=== PATIENT | male | born 2000 | race Asian ===

== ENCOUNTER 2019-04-04 21:14 | Emergency (ER) | payer OTHER ==
[~2019-04-04] VITALS: Ht 175.3 cm; Wt 80.3 kg
[~2019-04-04 21:14] MED LIST: CETI10CA PO; MONT10TA80 PO
[2019-04-04] MEDS ORDERED: IV NORMAL SALINE 1,000ML 1,000 ML IV SCH (21:50)
--- NOTE | 2019-04-04 21:59 | PHYS DOC ---
Past History Past Medical History: Arthritis, Asthma Past Surgical History: No Surgical History Smoking: Non-smoker Alcohol Use: None Drug Use: None Adult General Chief Complaint Chief Complaint: NAUSEA/VOMITING/DIARRHEA HPI HPI Patient is a 18-year-old male who presents with complaint of three-day history of headache and has had some nausea and vomiting over the last 2 days. Patient has only had one episode of vomiting today. He does indicate that he feels nauseated. Patient rates the pain in his abdomen at a 7 out of 10 and his headache he rates at an 8 out of 10. He states the pain is primarily in his left mid abdominal region. Patient does reportedly have history of Chiari malforma tion which parents attribute to his headache. Patient was seen earlier by his primary care provider and had obtained some blood work and they were concerned that he may have hepatitis. Patient has had no vomiting.[] Review of Systems Review of Systems Constitutional: Positive fever and chills [] Respiratory: Denies cough or shortness of breath [] Cardiovascular: No additional information not addressed in HPI [] GI: Complains of abdominal pain with nausea and vomiting. Denies diarrhea [] : Denies dysuria or hematuria [] Musculoskeletal: Denies back pain or joint pain [] Neurologic: Complains of headache without focal weakness or sensory changes [] All other systems were reviewed and found to be within normal limits, except as documented in this note. Current Medications Current Medications Current Medications Medications (Trade) Dose Ordered Sig/[facility] Start Time Stop Time Status Last Admin Dose Admin Fentanyl Citrate (Fentanyl 2ml Vial) 50 mcg PRN Q15MIN PRN 04/04/19 22:00 04/05/19 21:59 UNV Ketorolac Tromethamine (Toradol 30mg Vial) 30 mg 1X ONCE 04/04/19 22:00 04/04/19 22:01 UNV Ondansetron HCl (Zofran) 4 mg 1X ONCE 04/04/19 22:00 04/04/19 22:01 UNV Sodium Chloride 1,000 ml @ 1,000 mls/hr Q1H 04/04/19 21:50 04/04/19 22:49 UNV Allergies Allergies Allergies Coded Allergies Type Severity Reaction Last Updated Verified No Known Drug Allergies 03/17/14 No Physical Exam Physical Exam Constitutional: Well developed, well nourished, no acute distress, non-toxic appearance. [] HENT: Normocephalic, atraumatic, bilateral external ears normal, oropharynx moist, no oral exudates, nose normal. [] Eyes: PERRLA, EOMI, conjunctiva normal, no discharge. [] Neck: Normal range of motion, no tenderness, supple, no stridor. [] Cardiovascular: Mildly tachycardic rate with regular rhythm[] Lungs & Thorax: Bilateral breath sounds clear to auscultation [] Abdomen: Bowel sounds normal, soft, with left lower and left mid abdominal tenderness. [] Skin: Warm, dry, no erythema, no rash. [] Extremities: No tenderness, no cyanosis, no clubbing, ROM intact, no edema. [] Neurologic: Alert and oriented X 3, no focal deficits noted. [] EKG EKG [] Radiology/Procedures Radiology/Procedures [] Impressions: PROCEDURE: CT ABD PELV W/ IV CONTRST ONLY CT scan of the abdomen and pelvis with contrast 04/04/2019 CLINICAL HISTORY: Left-sided abdominal pain with nausea and vomiting. TECHNIQUE: After the intravenous administration of 74 cc of Omnipaque 300 350, contiguous, 5 mm axial sections were obtained through the abdomen and pelvis. One or more of the following individualized dose reduction techniques were utilized for this study: 1. Automated exposure control. 2. Adjustment of the mA and/or kV according to patient size. 3. Use of iterative reconstruction technique. FINDINGS: Images through the lung bases are within normal limits. The liver parenchyma has a decreased attenuation consistent with fatty infiltration. The spleen is mildly enlarged measuring 13.9 cm in length. A small low-attenuation curvilinear area is seen along the superior aspect of the spleen which is felt to most likely represent a splenic cleft. No subcapsular fluid collection is seen. The pancreas, adrenal glands and kidneys are within normal limits. The abdominal aorta tapers normally. The gallbladder is contracted. No free fluid or free air is seen within the abdomen. There is no evidence of bowel obstruction. The appendix is well-visualized and is within normal limits. Enlarged retroperitoneal and mesenteric lymph nodes are seen throughout the abdomen which measure 5 mm to 2.2 cm in size. The largest lymph nodes are seen within the right lower quadrant abdomen. A 1.2 cm prominent lymph node is seen within the left inferior pelvis. These lymph nodes are presumably reactive. Clinical correlation is recommended. Images through the pelvis demonstrate the urinary bladder distended with urine. No free fluid is seen. Minimal S-shaped curvature of the thoracolumbar spine is seen. IMPRESSION: 1. Mild splenomegaly. 2. Retroperitoneal, mesenteric and pelvic lymphadenopathy which is presumably reactive. Clinical correlation is recommended. 3. No acute abnormality is definitely seen. Electronically signed by: Kenneth Albrecht MD (04/04/2019 11:31 PM) [facility] DICTATED AND SIGNED BY: KENNETH ALBRECHT MD DATE: 04/04/19 233 Course & Med Decision Making Course & Med Decision Making Pertinent Labs and Imaging studies reviewed. (See chart for details) A sugar moved to room upon arrival and evaluated by your medical staff after which a workup has been initiated to include blood work and CT of the abdomen and pelvis. After reviewing findings, I do feel the patient would best be treated with admission to the hospital for more urgent workup findings. This is been reviewed with patient and family and they are in agreement. I discussed patient's case with Dr. Santiago and he will accept patient in transfer to [facility]. Dragon Disclaimer Dragon Disclaimer This electronic medical record was generated, in whole or in part, using a voice recognition dictation system. Departure Departure: Impression: Primary Impression: Hepatitis Additional Impressions: Intra-abdominal lymphadenopathy Splenomegaly Disposition: XFER SHT-TRM HOSP Condition: STABLE Referrals: NATHALIA COLEMAN (PCP) Problem Qualifiers ERICKA ROSS Jr. DO Apr 04, 2019 21:59
[2019-04-04] MEDS ORDERED: ONDANSETRON PF 4 MG/2 ML VIAL. IV ONE (22:15)
[2019-04-04] MEDS ORDERED: KETOROLAC 30 MG/ML VIAL. IV ONE (22:15)
[2019-04-04] MEDS ORDERED: IOHEXOL 300 MG/ML 75 ML VIAL. IV ONE (22:15)
[2019-04-04 22:53] LABS: BASO % 1 % (0-3); EOS % 0 % (0-3); HEMATOCRIT 44.2 % (39.0-53.0); HEMOGLOBIN 14.6 g/dL (13.0-17.5); LYMPH # 2.8 x10^3/uL (1.0-4.8); LYMPH % 54 % (24-48); MEAN CORPUSCULAR HEMOGLOBIN 28 pg (25-35); MEAN CORPUSCULAR HGB CONC 33 g/dL (31-37); MEAN CORPUSCULAR VOLUME 84 fL (79-100); MONO # 0.6 x10^3/uL (0.0-1.1); MONO % 11 % (0-9); NEUT # 1.7 x10^3uL (1.8-7.7); NEUT % 34 % (31-73); PLATELET COUNT 113 x10^3/uL (140-400); RED BLOOD COUNT 5.26 x10^6/uL (4.30-5.70); RED CELL DISTRIBUTION WIDTH 12.5 % (11.5-14.5); WHITE BLOOD COUNT 5.1 x10^3/uL (4.0-11.0)
[2019-04-04 23:06] LABS: ALBUMIN 3.6 g/dL (3.4-5.0); ALBUMIN/GLOBULIN RATIO 0.9 (1.0-1.7); CALCIUM 8.5 mg/dL (8.5-10.1); CREATININE 1.1 mg/dL (0.7-1.3); GFR 86.2; POTASSIUM 3.3 mmol/L (3.5-5.1); TOTAL BILIRUBIN 3.8 mg/dL (0.2-1.0); TOTAL PROTEIN 7.5 g/dL (6.4-8.2)
[2019-04-04 23:13] LABS: BACTERIA,URINE 0 /HPF (0-FEW); BILIRUBIN,URINE LARGE (NEG); CLARITY,URINE CLEAR; COLOR,URINE YELLOW; GLUCOSE,URINE NEG (NEG); NITRITE,URINE NEG (NEG); RBC,URINE 0 /HPF (0-2); SQUAMOUS EPITHELIAL CELL,UR OCC /LPF; UROBILINOGEN,URINE 2 mg/dL (0.2 mg/dL); WBC,URINE OCC /HPF (0-4)
--- NOTE | 2019-04-04 23:34 | RAD ---
CT scan of the abdomen and pelvis with contrast 04/04/2019 CLINICAL HISTORY: Left-sided abdominal pain with nausea and vomiting. TECHNIQUE: After the intravenous administration of 74 cc of Omnipaque 300 350, contiguous, 5 mm axial sections were obtained through the abdomen and pelvis. One or more of the following individualized dose reduction techniques were utilized for this study: 1. Automated exposure control. 2. Adjustment of the mA and/or kV according to patient size. 3. Use of iterative reconstruction technique. FINDINGS: Images through the lung bases are within normal limits. The liver parenchyma has a decreased attenuation consistent with fatty infiltration. The spleen is mildly enlarged measuring 13.9 cm in length. A small low-attenuation curvilinear area is seen along the superior aspect of the spleen which is felt to most likely represent a splenic cleft. No subcapsular fluid collection is seen. The pancreas, adrenal glands and kidneys are within normal limits. The abdominal aorta tapers normally. The gallbladder is contracted. No free fluid or free air is seen within the abdomen. There is no evidence of bowel obstruction. The appendix is well-visualized and is within normal limits. Enlarged retroperitoneal and mesenteric lymph nodes are seen throughout the abdomen which measure 5 mm to 2.2 cm in size. The largest lymph nodes are seen within the right lower quadrant abdomen. A 1.2 cm prominent lymph node is seen within the left inferior pelvis. These lymph nodes are presumably reactive. Clinical correlation is recommended. Images through the pelvis demonstrate the urinary bladder distended with urine. No free fluid is seen. Minimal S-shaped curvature of the thoracolumbar spine is seen. IMPRESSION: 1. Mild splenomegaly. 2. Retroperitoneal, mesenteric and pelvic lymphadenopathy which is presumably reactive. Clinical correlation is recommended. 3. No acute abnormality is definitely seen. Electronically signed by: Kenneth Albrecht MD (04/04/2019 11:31 PM) [facility]
[2019-04-05 01:05] VITALS: BP 115/65
[2019-04-07 09:11] LABS: EBNA IGG <18.0 U/mL (0.0-17.9)
== END 2019-04-05 01:50 | disposition short-term general hospital (02) ==
LOC: ER 21:14
DX: K75.9 Inflammatory liver disease, unspecified (principal); R59.0 Localized enlarged lymph nodes; R16.1 Splenomegaly, not elsewhere classified; R11.2 Nausea with vomiting, unspecified; M19.90 Unspecified osteoarthritis, unspecified site; J45.909 Unspecified asthma, uncomplicated
CPT/HCPCS: 36415; 74177; 80053; 81001; 83690; 85025; 86644; 86645; 86663; 86664; 86705; 86709; 86803; 87340; 96361; 96374; 96375; 96376; 99285; J1885; J2405; J3010; Q9967; J7030

== ENCOUNTER 2020-02-15 18:01 | Emergency (ER) | payer OTHER ==
[~2020-02-15] VITALS: Ht 175.3 cm; Wt 89.2 kg
[2020-02-15] MEDS ORDERED: IV RINGERS SOLUTION,LACTATED 1,000 ML IV SCH (18:05)
[2020-02-15] MEDS ORDERED: ONDANSETRON PF 4 MG/2 ML VIAL. IVP ONE (18:15)
[2020-02-15] MEDS ORDERED: KETOROLAC 30 MG/ML VIAL. IVP ONE (18:15)
[2020-02-15] MEDS ORDERED: FAMOTIDINE 20 MG/2 ML VIAL IVP ONE (18:15)
--- NOTE | 2020-02-15 18:35 | PHYS DOC ---
Past History Past Medical History: Arthritis, Asthma, GERD, Hepatitis, Liver Disease, Other Additional Past Medical Histor: juvenile rheumatoid arthritis Past Medical History Pericardial effusion age 5- surgical drainage, Liver bx after course of Hepatitis in [facility], adenopathy and splenomegaly 2019 at [facility] Past Surgical History: Other Additional Past Surgical Histo: 2006 pericardial effusion Smoking: Non-smoker Alcohol Use: None Drug Use: None General Adult EDM: Chief Complaint: NAUSEA/VOMITING/DIARRHEA HPI: HPI: ".. I think I drank some bad fruit juice at [employer] where I work....".." It was peach juice... it just tasted bad....I do get stomach up set when I eat spicy foods.. at same spot...."..." Patient is a 19 year old male who presents with history of nausea and vomiting today after intake of some peach fruit juice at work. Reportedly the fruit juice tasted bad. Fruit juice also made his boss ill. Patient states primary area of pain is epigastric area and right upper quadrant. Patient did vomit. Foodstuff. Last meal. Did have an episode of bright red stool x1 after some diarrhea episodes. Patient denies any recent travel outside [facility]. Was in [facility] approximately 1 year ago contracted hepatitis which resulted in a liver biopsy to evaluate for damage and nodes at [facility].. Patient has significant past medical history of rheumatoid arthritis, pericardial effusion was required surgical drainage at age 5, history of GERD. The patient normally follows at [facility] as a dependent. Has never had a colonoscopy. Has never had a EGD. Patient avoids Tylenol because of his history of hepatitis. Patient denies any immunosuppression such as HIV and or other immunodeficiencies. Patient denies any history of IV drug use. No history of coagulopathy with him or family members . Patient is not currently on any immune suppressor or meds for his rheumatoid arthritis. Review of Systems: Review of Systems: Constitutional: Denies fever or chills Eyes: Denies change in visual acuity HENT: Denies nasal congestion or sore throat Respiratory: Denies cough or shortness of breath Cardiovascular: Denies chest pain or edema GI: Complains of epigastric abdominal pain, nausea, vomiting, bloody stools with diarrhea : Denies dysuria Musculoskeletal: Denies back pain or joint pain Integument: Denies rash Neurologic: Denies headache, focal weakness or sensory changes Endocrine: Denies polyuria or polydipsia Lymphatic: Denies swollen glands Psychiatric: Denies depression or anxiety Heart Score: Risk Factors: Risk Factors: DM, Current or recent (<one month) smoker, HTN, HLP, family history of CAD, obesity. Risk Scores: Score 0 - 3: 2.5% MACE over next 6 weeks - Discharge Home Score 4 - 6: 20.3% MACE over next 6 weeks - Admit for Clinical Observation Score 7 - 10: 72.7% MACE over next 6 weeks - Early Invasive Strategies Family History: Family History: Noncontributory to presentation no history of family colitis, IBS or other GI abnormalities Current Medications: Current Meds: Current Medications Medications (Trade) Dose Ordered Sig/[facility] Start Time Stop Time Status Last Admin Dose Admin Famotidine (Pepcid Vial) 20 mg 1X ONCE 02/15/20 18:15 02/15/20 18:16 DC Ketorolac Tromethamine (Toradol 30mg Vial) 30 mg 1X ONCE 02/15/20 18:15 02/15/20 18:16 DC Lactated Ringer's 1,000 ml @ 1,000 mls/hr Q1H 02/15/20 18:05 02/15/20 19:04 Ondansetron HCl (Zofran) 8 mg 1X ONCE 02/15/20 18:15 02/15/20 18:16 DC Allergies: Allergies: Allergies Coded Allergies Type Severity Reaction Last Updated Verified acetaminophen Allergy Unknown 02/15/20 Yes Physical Exam: PE: Constitutional: Well developed, well nourished, moderate acute distress, non- toxic appearance. [] Rates his pain at its peak 9 out of 10 in the epigastric area HENT: Normocephalic, atraumatic, bilateral external ears normal, oropharynx moist, no oral exudates, nose normal. [] Large bilateral ear studs. [place] tail. Eyes: PERRLA, EOMI, conjunctiva normal, no discharge. [] Neck: Normal range of motion, no tenderness, supple, no stridor. [] Cardiovascular:Heart rate regular rhythm, no murmur [] Lungs & Thorax: Bilateral breath sounds equal apex on auscultation [. Patient] does have a pericardial window scar from age 5 pericardial effusion drainage Abdomen: Bowel sounds hyperactive, soft, mild rebound tenderness in the epigastric area, no masses, no pulsatile masses. Rectal appears to have a small rectal fissure. No active bleeding on digital exam. Testicles descended non tender. No penile discharge appreciated Skin: Warm, dry, no erythema, no rash. [] Back: No tenderness, no CVA tenderness. [] Extremities: No tenderness, no cyanosis, no clubbing, ROM intact, no edema. [] No true psoas sign on exam. Neurologic: Alert and oriented X 3, normal motor function, normal sensory function, no focal deficits noted. [] Psychologic: Affect anxious, judgement normal, mood normal. [] Current Patient Data: Vital Signs: Vital Signs Date Time Temp Pulse Resp B/P (MAP) Pulse Ox O2 Delivery O2 Flow Rate FiO2 02/15/20 18:08 98.3 104 14 131/107 (115) 97 Room Air EKG: EKG: [] Radiology/Procedures: Radiology/Procedures: [address] [address] IMAGING REPORT Signed PATIENT: DAYANNA MONCADA JACCOUNT: [id number] : 2000 LOCATION: ER AGE: 19 SEX: M EXAM STATUS: REG ER ORD. PHYSICIAN: LEOPOLDO DAMON MD REASON: n,v,pain PROCEDURE: ACUTE ABDOMEN SERIES EXAM: Frontal view of the chest, AP views of the abdomen in upright and supine positions. CLINICAL INDICATION: Reason: n,v,pain / Spl. Instructions: / History: COMPARISON: None. FINDINGS and IMPRESSION: The heart is not enlarged. Mediastinal and hilar contours are normal. No focal parenchymal airspace opacity. No pleural effusion or pneumothorax. No abnormal small or large bowel dilatation. Moderate to large volume colonic stool content. No abnormal soft tissue mass effect. No suspicious calcifications are seen. No free intraperitoneal gas. Electronically signed by: Greyson Matos MD (02/15/2020 8:11 PM) [facility] DICTATED AND SIGNED BY: GREYSON MATOS MD DATE: 02/15/202010 CC: NATHALIA COLEMAN; LEOPOLDO DAMON MD ~ [address] [place] [id number] IMAGING REPORT Signed PATIENT: DAYANNA MONCADA JACCOUNT: [id number] : 2000 LOCATION: ER AGE: 19 SEX: M EXAM STATUS: REG ER ORD. PHYSICIAN: LEOPOLDO DAMON MD REASON: Hx enlarged spleen, adenopathy - last CT 04/04/19, bx at that time PROCEDURE: CT ABD PELV W/ORAL&IV CONTRAST EXAM: CT Abdomen and Pelvis with IV contrast CLINICAL HISTORY: Abdominal pain. Hx enlarged spleen, adenopathy - last CT 04/04/19, bx at that time COMPARISON: none TECHNIQUE: Helical CT of the abdomen and pelvis was performed following the administration of IV contrast. Axial, coronal and sagittal reformatted images were generated. ---PQRS compliance statement - One or more of the following individualized dose reduction techniques were utilized for this study: 1. Automated exposure control 2. Adjustment of the mA and/or kV according to patient size 3. Use of iterative reconstruction technique--- FINDINGS: Lower chest: Linear opacities in the lingula likely scarring/atelectasis. Abdomen and pelvis: Liver and biliary system: No focal liver lesion. Gallbladder is normal. No biliary ductal dilatation. Spleen: Heterogeneous enhancement of the spleen likely from phase of contrast. Spleen measures 11.6 cm in length, normal in size. Pancreas: Unremarkable Adrenal glands: Unremarkable Kidneys: Symmetric nephrograms. No focal renal lesion. No hydronephrosis or hydroureter.. Hypodensity in the renal collecting systems. Lymph nodes/retroperitoneum: No abdominal or pelvic lymphadenopathy although a few mildly prominent right lower quadrant lymph nodes are seen. Vessels: Aorta is normal in caliber. Bowel/Peritoneal cavity: Moderate colonic stool content is seen. No small or large bowel dilatation. Appendix is normal. No abdominal or pelvic ascites. No abdominal or pelvic ascites. Abdominal wall: Abdominal wall is grossly unremarkable. Bladder: Mild diffuse bladder wall thickening may be seen with cystitis. Bones: No aggressive osseous lesion. IMPRESSION: 1. Diffuse bladder wall thickening may be seen with cystitis. 2. The spleen is normal in size. The previously seen abdominal and pelvic lymphadenopathy has decreased in size with a few residual mildly prominent right lower quadrant lymph nodes. 3. Appendix is normal. 4. Moderate colonic stool content. No bowel obstruction. 5. There is mild apparent high density within the renal collecting systems, of uncertain clinical significance, possibly hemorrhagic or proteinaceous and can be correlated with urinalysis. Electronically signed by: Greyson Matos MD (02/15/2020 9:21 PM) [facility] DICTATED AND SIGNED BY: GREYSON MATOS MD DATE: 02/15/202120 CC: NATHALIA COLEMAN; LEOPOLDO DAMON MD ~Reviewed CT of 04/04/2019[] Course & Med Decision Making: Course & Med Decision Making Pertinent Labs and Imaging studies reviewed. (See chart for details) Discussed options of evaluation with patient . Will obtain baseline labs and acute abdomen film. Patient to remain on a clear fluid diet for the next 2 days. No solids or milk products. Must allow bowel rest. Take ibuprofen as needed for pain. Take Pepcid 20 mg twice a day. Recommend follow-up with GI as previously directed. Return tomorrow to get a CT disc of your exam tonight currently that is not available due to computer malfunction. Currently no acute surgical pathology identified. Would consider EGD and colonoscopy due to your history of symptoms, would discuss this with your primary and GI specialist.. Push fluids. Return if any concerns. There are still some pending labs that will need to be followed up with your primary care. Impression: 1. Abdomen pain-primarily epigastric 2. Suspect food poisoning vs viral syndrome 3. Outlet GI bleeding [] Dragon Disclaimer: Dragon Disclaimer: This electronic medical record was generated, in whole or in part, using a voice recognition dictation system. Departure Departure: Disposition: 01 HOME/RESIDENCE PRIOR TO ADM Condition: STABLE Referrals: NATHALIA COLEMAN (PCP) Scripts Famotidine (PEPCID) 20 Mg Tablet 1 TAB PO BID for gerd, #60 TAB 3 Refills Prov: LEOPOLDO DAMON MD 02/15/20 Ondansetron Hcl (ZOFRAN) 8 Mg Tablet 8 MG PO QIDPRN PRN for active nausea and vomiting, #30 BOTTLE Prov: LEOPOLDO DAMON MD 02/15/20 Justification of Admission: Justification of Admission: Justification of Admission Dx: N/A Dragon Disclaimer This chart was dictated in whole or in part using Voice Recognition software in a busy, high-work load, and often noisy Emergency Department environment. It may contain unintended and wholly unrecognized errors or omissions. Dragon Disclaimer This chart was dictated in whole or in part using Voice Recognition software in a busy, high-work load, and often noisy Emergency Department environment. It may contain unintended and wholly unrecognized errors or omissions. LEOPOLDO DAMON MD Feb 15, 2020 18:35
[2020-02-15 18:41] LABS: BASO # 0.1 x10^3/uL (0.0-0.2); BASO % 1 % (0-3); EOS # 0.1 x10^3/uL (0.0-0.7); EOS % 1 % (0-3); HEMATOCRIT 44.4 % (39.0-53.0); HEMOGLOBIN 14.8 g/dL (13.0-17.5); LYMPH % 23 % (24-48); MEAN CORPUSCULAR HEMOGLOBIN 28 pg (25-35); MEAN CORPUSCULAR HGB CONC 33 g/dL (31-37); MEAN CORPUSCULAR VOLUME 84 fL (79-100); MONO # 0.6 x10^3/uL (0.0-1.1); MONO % 7 % (0-9); NEUT # 6.3 x10^3uL (1.8-7.7); NEUT % 69 % (31-73); PLATELET COUNT 311 x10^3/uL (140-400); RED CELL DISTRIBUTION WIDTH 12.5 % (11.5-14.5); WHITE BLOOD COUNT 9.1 x10^3/uL (4.0-11.0)
[2020-02-15 18:45] LABS: CALCIUM 9.4 mg/dL (8.5-10.1); GFR 95.3; POTASSIUM 3.6 mmol/L (3.5-5.1)
[2020-02-15 18:52] LABS: ALBUMIN 4.4 g/dL (3.4-5.0); DIRECT BILIRUBIN 0.2 mg/dL (0.0-0.2); TOTAL BILIRUBIN 0.5 mg/dL (0.2-1.0); TOTAL PROTEIN 8.4 g/dL (6.4-8.2)
[2020-02-15] MEDS ORDERED: FAMO-63 PO (19:20)
[2020-02-15] MEDS ORDERED: ONDA8TAB9 PO (19:20)
[2020-02-15 19:58] LABS: BARBITURATES NEG (NEG); BENZODIAZEPINES NEG (NEG); CANNABINOIDS NEG (NEG); COCAINE NEG (NEG); METHADONE NEG (NEG); OPIATES NEG (NEG); PHENCYCLIDINE NEG (NEG)
[2020-02-15 19:59] LABS: AMPHETAMINE/METHAMPHETAMINE NEG (NEG)
[2020-02-15] MEDS ORDERED: IOHEXOL 300 MG/ML 75 ML VIAL. IV ONE (20:00)
[2020-02-15] MEDS ORDERED: IOHEXOL 240 MG/ML 50ML VIAL. PO ONE (20:00)
[2020-02-15 20:04] LABS: BILIRUBIN,URINE NEG (NEG); CLARITY,URINE CLEAR; COLOR,URINE YELLOW; GLUCOSE,URINE NEG (NEG); NITRITE,URINE NEG (NEG); RBC,URINE 0 /HPF (0-2); UROBILINOGEN,URINE 0.2 mg/dL (0.2 mg/dL); WBC,URINE OCC /HPF (0-4)
[2020-02-15 20:05] LABS: BACTERIA,URINE 0 /HPF (0-FEW); SQUAMOUS EPITHELIAL CELL,UR OCC /LPF
--- NOTE | 2020-02-15 20:14 | RAD ---
EXAM: Frontal view of the chest, AP views of the abdomen in upright and supine positions. CLINICAL INDICATION: Reason: n,v,pain / Spl. Instructions: / History: COMPARISON: None. FINDINGS and IMPRESSION: The heart is not enlarged. Mediastinal and hilar contours are normal. No focal parenchymal airspace opacity. No pleural effusion or pneumothorax. No abnormal small or large bowel dilatation. Moderate to large volume colonic stool content. No abnormal soft tissue mass effect. No suspicious calcifications are seen. No free intraperitoneal gas. Electronically signed by: Greyson Gilmore MD (02/15/2020 8:11 PM) [facility]
[2020-02-15] MEDS ORDERED: MORPHINE SULFATE 10 MG/ML SYRINGE. SQ ONE (21:15)
[2020-02-15 21:17] VITALS: BP 134/65
--- NOTE | 2020-02-15 21:24 | RAD ---
EXAM: CT Abdomen and Pelvis with IV contrast CLINICAL HISTORY: Abdominal pain. Hx enlarged spleen, adenopathy - last CT 04/04/19, bx at that time COMPARISON: none TECHNIQUE: Helical CT of the abdomen and pelvis was performed following the administration of IV contrast. Axial, coronal and sagittal reformatted images were generated. ---PQRS compliance statement - One or more of the following individualized dose reduction techniques were utilized for this study: 1. Automated exposure control 2. Adjustment of the mA and/or kV according to patient size 3. Use of iterative reconstruction technique--- FINDINGS: Lower chest: Linear opacities in the lingula likely scarring/atelectasis. Abdomen and pelvis: Liver and biliary system: No focal liver lesion. Gallbladder is normal. No biliary ductal dilatation. Spleen: Heterogeneous enhancement of the spleen likely from phase of contrast. Spleen measures 11.6 cm in length, normal in size. Pancreas: Unremarkable Adrenal glands: Unremarkable Kidneys: Symmetric nephrograms. No focal renal lesion. No hydronephrosis or hydroureter.. Hypodensity in the renal collecting systems. Lymph nodes/retroperitoneum: No abdominal or pelvic lymphadenopathy although a few mildly prominent right lower quadrant lymph nodes are seen. Vessels: Aorta is normal in caliber. Bowel/Peritoneal cavity: Moderate colonic stool content is seen. No small or large bowel dilatation. Appendix is normal. No abdominal or pelvic ascites. No abdominal or pelvic ascites. Abdominal wall: Abdominal wall is grossly unremarkable. Bladder: Mild diffuse bladder wall thickening may be seen with cystitis. Bones: No aggressive osseous lesion. IMPRESSION: 1. Diffuse bladder wall thickening may be seen with cystitis. 2. The spleen is normal in size. The previously seen abdominal and pelvic lymphadenopathy has decreased in size with a few residual mildly prominent right lower quadrant lymph nodes. 3. Appendix is normal. 4. Moderate colonic stool content. No bowel obstruction. 5. There is mild apparent high density within the renal collecting systems, of uncertain clinical significance, possibly hemorrhagic or proteinaceous and can be correlated with urinalysis. Electronically signed by: Greyson Gilmore MD (02/15/2020 9:21 PM) [facility]
== END 2020-02-15 21:42 | disposition home or self-care (01) ==
LOC: ER 18:01
DX: K92.2 Gastrointestinal hemorrhage, unspecified (principal); R11.2 Nausea with vomiting, unspecified; J45.909 Unspecified asthma, uncomplicated; K21.9 Gastro-esophageal reflux disease without esophagitis; M08.00 Unspecified juvenile rheumatoid arthritis of unspecified site; Z88.6 Allergy status to analgesic agent
CPT/HCPCS: 36415; 74022; 74177; 80048; 80076; 80307; 81001; 82150; 83690; 85025; 85610; 85730; 86705; 86709; 86803; 87340; 96361; 96372; 96374; 96375; 99285; J1885; J2270; J2405; J3490; J7120

== ENCOUNTER 2020-12-16 05:09 | Emergency (ER) | payer OTHER ==
[~2020-12-16] VITALS: Ht 175.3 cm; Wt 91.0 kg
[~2020-12-16 05:09] MED LIST changes: +FAMO-63 PO; +ONDA8TAB9 PO
--- NOTE | 2020-12-16 05:38 | PHYS DOC ---
Past History Past Medical History: Arthritis, Asthma, GERD, Hepatitis, Liver Disease, Other Additional Past Medical Histor: juvenile rheumatoid arthritis (COURTNEY XAVIER MD) Past Surgical History: Other Additional Past Surgical Histo: 2006 pericardial effusion (COURTNEY XAVIER MD) Smoking: Non-smoker Alcohol Use: None Drug Use: None (COURTNEY XAVIER MD) Adult General Chief Complaint Chief Complaint: GENERALIZED [facility] HPI Patient is a 20-year-old male with a past medical history significant for asthma, and juvenile rheumatoid arthritis in remission who presents to the emergency department with a chief complaint of fever, cough, sore throat and body aches. States he just got back from a long trip in [place] with his friends 5 days ago and symptoms started about 2 days after that. States it began with sore throat and then fevers at home to approximately 103 which did respond to naproxen. States he had one episode of nonbloody nonbilious emesis yesterday but none since then. States he is drinking fluids and eating a little bit but it hurts to swallow. States he has a sore throat that is about 5 out of 10. Denies headache, neck pain, chest pain, shortness of breath, abdominal pain, dysuria, hematuria or blood in the stool. Denies any rash. Denies any known ill contacts. States he has had his Covid vaccination. (COURTNEY XAVIER MD) Review of Systems Review of Systems Review of systems otherwise unremarkable except noted in HPI (COURTNEY XAVIER MD) Allergies Allergies Allergies Coded Allergies Type Severity Reaction Last Updated Verified acetaminophen Allergy Unknown 02/15/20 Yes (COURTNEY XAVIER MD) Physical Exam Physical Exam Constitutional: Well developed, well nourished, no acute distress, non-toxic appearance. [] HENT: Normocephalic, atraumatic, bilateral external ears normal, bilateral tympanic membranes with scarring but no erythema or bulging, oropharynx moist with bilateral oropharyngeal erythema, no oral exudates, nose normal. [] Eyes: conjunctiva normal, no discharge. [] Neck: Normal range of motion, no tenderness, supple, no stridor. [] Cardiovascular: Sinus tachycardia Lungs & Thorax: Bilateral breath sounds clear to auscultation [] Abdomen: soft, no tenderness, no masses, no pulsatile masses. [] Skin: Warm, dry, no erythema, no rash. [] Extremities: No tenderness, ROM intact, no edema. [] Neurologic: Alert and oriented X 3, normal motor function, normal sensory function, able to sit, stand, walk, no focal deficits noted. [] Psychologic: Affect normal, judgement normal, mood normal. [] (COURTNEY XAVIER MD) EKG EKG [] (COURTNEY XAVIER MD) Radiology/Procedures Radiology/Procedures [] (COURTNEY XAVIER MD) Heart Score C/O Chest Pain: No Risk Factors: Risk Factors: DM, Current or recent (<one month) smoker, HTN, HLP, family history of CAD, obesity. Risk Scores: Risk Factors: DM, Current or recent (<one month) smoker, HTN, HLP, family history of CAD, obesity. (COURTNEY XAVIER MD) Course & Med Decision Making Course & Med Decision Making Patient is a 20-year-old male who presents with approximately 4 days of sore throat, fever, cough and body aches Vital signs notable for tachycardia and fever. Physical exam noted above. Patient placed on the monitor with IV access established. Started on IV fluid resuscitation. Given ibuprofen. [] (COURTNEY XAVIER MD) Course & Med Decision Making The patient's labs are as expected with an elevated white count. The rest are unremarkable. The patient's IV fluids have slowed his heart rate down to around 100. I stressed to the patient is staying hydrated will help him feel better. His Covid is pending. This appears to be some kind of viral illness. I have advised hydration, rest and staying away from other people at this time. He is stable for discharge at this time. (ANJEL ROMERO DO) Dragon Disclaimer Dragon Disclaimer This electronic medical record was generated, in whole or in part, using a voice recognition dictation system. (COURTNEY XAVIER MD) Departure Departure: Impression: Primary Impression: Viral syndrome Disposition: HOME / SELF CARE / HOMELESS Condition: STABLE Referrals: NATHALIA COLEMAN (PCP) Patient Instructions: Viral Syndrome COURTNEY XAVIER MD December 16, 2020 05:38 ANJEL ROMEOR DO December 16, 2020 06:36
[2020-12-16] MEDS ORDERED: IBUPROFEN 800 MG TABLET. PO ONE (05:45)
[2020-12-16 05:58] LABS: BASO % 0 % (0-3); EOS # 0.1 x10^3/uL (0.0-0.7); EOS % 0 % (0-3); HEMATOCRIT 43.6 % (39.0-53.0); HEMOGLOBIN 14.6 g/dL (13.0-17.5); LYMPH # 1.4 x10^3/uL (1.0-4.8); LYMPH % 10 % (24-48); MEAN CORPUSCULAR HEMOGLOBIN 28 pg (25-35); MEAN CORPUSCULAR HGB CONC 34 g/dL (31-37); MEAN CORPUSCULAR VOLUME 83 fL (79-100); MONO # 1.1 x10^3/uL (0.0-1.1); MONO % 8 % (0-9); NEUT # 10.9 x10^3uL (1.8-7.7); NEUT % 81 % (31-73); PLATELET COUNT 255 x10^3/uL (140-400); RED BLOOD COUNT 5.27 x10^6/uL (4.30-5.70); RED CELL DISTRIBUTION WIDTH 12.6 % (11.5-14.5); WHITE BLOOD COUNT 13.5 x10^3/uL (4.0-11.0)
[2020-12-16] MEDS ORDERED: IV RINGERS SOLUTION,LACTATED 1,000 ML IV ONE (06:00)
--- NOTE | 2020-12-16 06:01 | RAD ---
XR CHEST 2V Technique: PA and lateral views of the chest were obtained. Clinical History: Reason: cough, fever / Spl. Instructions: / History: Comparison: None. Findings: The heart and pulmonary vasculature appear within normal limits. The lungs are clear. The pleural ma rgins are clear. Impression: No acute chest process is seen. Electronically signed by: Marlon aHrley III, MD (12/16/2020 5:59 AM) [facility]
[2020-12-16 06:11] LABS: BACTERIA,URINE 0 /HPF (0-FEW); BILIRUBIN,URINE SMALL (NEG); CLARITY,URINE CLEAR; COLOR,URINE YELLOW; GLUCOSE,URINE NEG (NEG); NITRITE,URINE NEG (NEG); RBC,URINE 0 /HPF (0-2); SQUAMOUS EPITHELIAL CELL,UR OCC /LPF; WBC,URINE 0 /HPF (0-4)
[2020-12-16 06:33] LABS: POTASSIUM ISTAT 3.5 mmol/L (3.5-5.0)
[2020-12-16 06:40] VITALS: BP 109/48
== END 2020-12-16 06:49 | disposition home or self-care (01) ==
LOC: ER 05:09
DX: B34.9 Viral infection, unspecified (principal); J45.909 Unspecified asthma, uncomplicated; K21.9 Gastro-esophageal reflux disease without esophagitis; M08.00 Unspecified juvenile rheumatoid arthritis of unspecified site; Z20.822 Contact with and (suspected) exposure to COVID-19; Z88.6 Allergy status to analgesic agent
CPT/HCPCS: 71046; 80047; 81001; 85025; 87070; 87880; 96360; 99284; J7120; U0003; 87147